=== PATIENT | female | born 1970 | race Caucasian/White ===

== ENCOUNTER 2018-06-05 20:54 | Emergency (ER) | payer BC, SELFPAY ==
[~2018-06-05] VITALS: Ht 162.6 cm; Wt 75.0 kg
[2018-06-05 20:55] VITALS: BP 169/82
== END 2018-06-05 21:00 | disposition left against medical advice (07) ==
LOC: M ED 20:54
DX: Z53.29 Procedure and treatment not carried out because of patient's decision for other reasons (principal)

== ENCOUNTER → 2018-06-06 | Outpatient (CLI) | payer BC ==
--- NOTE | 2018-06-07 04:05 | REP ---
Clinical: Acute bronchitis. Technique: PA and lateral. Findings: Mediastinum and cardiac silhouette normal. Lung valenzuela clear. No focal consolidation, effusion, or pneumothorax. Skeletal structures intact. Impression: No focal consolidation. Electronically Signed by Vivek Sullivan MD 06/07/2018 03:56 A
== END ==
LOC: M ADAMS 18:45
PROVIDERS: ATTEND Physician Assistant
DX: J20.9 Acute bronchitis, unspecified (principal)

== ENCOUNTER → 2021-06-03 | Outpatient (CLI) | payer BC | LOC: M WHC 12:35 | PROVIDERS: ATTEND Family Medicine | DX: Z12.31 Encounter for screening mammogram for malignant neoplasm of breast (principal); Z78.0 Asymptomatic menopausal state; Z92.0 Personal history of contraception; R92.1 Mammographic calcification found on diagnostic imaging of breast ==

== ENCOUNTER → 2021-06-03 | Outpatient (CLI) | payer BC | LOC: M WHC 12:09 | PROVIDERS: ATTEND Family Medicine | DX: Z12.31 Encounter for screening mammogram for malignant neoplasm of breast (principal) ==

== ENCOUNTER → 2021-10-13 | Outpatient (CLI) | payer BC | LOC: M WUC 15:51 | PROVIDERS: ATTEND Allergy & Immunology Allergy | DX: R05.9 Cough, unspecified (principal) ==

== ENCOUNTER → 2021-12-26 | Outpatient (CLI) | payer BC | LOC: M RAD 10:49 | PROVIDERS: ATTEND Student in an Organized Health Care Education/Training Program | DX: R91.8 Other nonspecific abnormal finding of lung field (principal); F17.210 Nicotine dependence, cigarettes, uncomplicated ==

== ENCOUNTER → 2022-03-29 | Outpatient (CLI) | payer BC ==
[2022-03-29 15:51] LABS: BASO # 0.1 10^3/uL (0.0-0.2); BASO % 0.7 % (0.0-1.0); EOS # 0.1 10^3/uL (0.0-0.5); EOS % 1.6 % (0.0-3.0); HEMATOCRIT 43.3 % (36.0-47.0); LYMPH # 2.5 10^3/uL (1.5-5.0); LYMPH % 30.3 % (24.0-44.0); MEAN CORPUSCULAR HEMOGLOBIN 31.3 pg (27.0-33.0); MEAN CORPUSCULAR HGB CONC 32.3 g/dl (32.0-36.5); MEAN CORPUSCULAR VOLUME 96.7 fl (80.0-96.0); MONO # 0.5 10^3/uL (0.0-0.8); MONO % 6.6 % (2.0-8.0); NEUTROPHILS # 4.9 10^3/uL (1.5-8.5); NEUTROPHILS % 60.6 % (36.0-66.0); PLATELET COUNT, AUTOMATED 247 10^3/uL (150-450); RED BLOOD COUNT 4.48 10^6/uL (4.00-5.40); WHITE BLOOD COUNT 8.2 10^3/uL (4.0-10.0)
[2022-03-29 16:27] LABS: ERYTHROCYTE SEDIMENTATION RATE 9 mm/hr (0-30)
== END ==
LOC: M PLALAB 13:17
PROVIDERS: ATTEND Orthopaedic Surgery
DX: M25.531 Pain in right wrist (principal)

== ENCOUNTER → 2022-06-08 | Outpatient (CLI) | payer BC | LOC: M WHC 10:04 | PROVIDERS: ATTEND Student in an Organized Health Care Education/Training Program | DX: Z12.31 Encounter for screening mammogram for malignant neoplasm of breast (principal) ==

== ENCOUNTER → 2023-01-23 | Outpatient (CLI) | payer BC | LOC: M RAD 10:37 | PROVIDERS: ATTEND Student in an Organized Health Care Education/Training Program | DX: Z12.2 Encounter for screening for malignant neoplasm of respiratory organs (principal); F17.210 Nicotine dependence, cigarettes, uncomplicated ==

== ENCOUNTER → 2023-03-19 | Outpatient (CLI) | payer BC ==
[~2023-03-19] MED LIST: AMLO1TAB25 PO; ASPI81TAEC PO; ATOR1TAB21 PO; BREO1INH INH; CITA10TA7 PO; DICY-61 PO; FAMO40TA3 PO; LEVOTAB10 PO; OMEP40CA5 PO; SUCR1ORA PO
== END ==
LOC: M SLEEP HO 11:51
PROVIDERS: ATTEND Nurse Practitioner Family
DX: R40.0 Somnolence (principal)

== ENCOUNTER 2023-03-28 12:33 | Observation (INO) | payer BC ==
[~2023-03-28] VITALS: Ht 162.6 cm; Wt 80.1 kg
[2023-03-28] MEDS ORDERED: CITA10TA7 PO (13:05)
[2023-03-28] MEDS ORDERED: FAMO40TA3 PO (13:05)
[2023-03-28] MEDS ORDERED: DICY-61 PO (13:05)
[2023-03-28] MEDS ORDERED: OMEP40CA5 PO (13:05)
[2023-03-28] MEDS ORDERED: SUCR1ORA PO (13:05)
[2023-03-28] MEDS ORDERED: LEVOTAB10 PO (13:05)
[2023-03-28 15:29] LABS: BASO # 0.1 10^3/uL (0.0-0.2); BASO % 1.3 % (0.0-1.0); EOS # 0.1 10^3/uL (0.0-0.5); EOS % 1.9 % (0.0-3.0); HEMATOCRIT 39.5 % (36.0-47.0); HEMOGLOBIN 13.5 g/dl (12.0-15.5); LYMPH # 2.1 10^3/uL (1.5-5.0); LYMPH % 29.8 % (24.0-44.0); MEAN CORPUSCULAR HEMOGLOBIN 31.2 pg (27.0-33.0); MEAN CORPUSCULAR HGB CONC 34.2 g/dl (32.0-36.5); MEAN CORPUSCULAR VOLUME 91.2 fl (80.0-96.0); MONO # 0.6 10^3/uL (0.0-0.8); MONO % 8.7 % (2.0-8.0); NEUTROPHILS % 58.2 % (36.0-66.0); PLATELET COUNT, AUTOMATED 228 10^3/uL (150-450); RED BLOOD COUNT 4.33 10^6/uL (4.00-5.40); WHITE BLOOD COUNT 6.9 10^3/uL (4.0-10.0)
[2023-03-28] MEDS ORDERED: ISOVUE-370 76% 100ML VIAL As Ordered ONE (15:29)
[2023-03-28 15:42] LABS: INR 0.96; PROTHROMBIN TIME 12.5 SECONDS (12.5-14.5)
[2023-03-28 15:43] LABS: PARTIAL THROMBOPLASTIN TIME 27.2 SECONDS (24.8-34.2)
[2023-03-28 15:56] LABS: RSV AMPLIFICATION NEGATIVE (NEGATIVE)
[2023-03-28 16:59] LABS: BLOOD UREA NITROGEN 11 MG/DL (9-23); CALCIUM LEVEL 9.2 MG/DL (8.5-10.1); CARBON DIOXIDE LEVEL 27 MMOL/L (20-31); CHLORIDE LEVEL 104 MMOL/L (98-107); CK-MB VALUE MASS < 1.0 NG/ML (<3.6); CPK CREATINE PHOSPHOKINASE 77 U/L (34-145); GLOMERULAR FILTRATION RATE > 60.0 (>51); GLUCOSE, FASTING 70 MG/DL (60-100); MB/CK RELATIVE INDEX 1.29 (< OR =4); POTASSIUM SERUM 4.1 MMOL/L (3.5-5.1); SODIUM LEVEL 139 MMOL/L (136-145)
[2023-03-28 17:01] LABS: THYROID STIMULATING HORMONE 0.671 uIU/ML (0.55-4.78)
[2023-03-28 17:02] LABS: FREE T4 0.99 NG/DL (0.89-1.76)
[2023-03-28] MEDS ORDERED: MED REC IN PROGRESS XX SCH (18:10)
[2023-03-28] MEDS ORDERED: MOM 30ML SUSPENSION UDC PO PRN (18:30)
[2023-03-28] MEDS ORDERED: ACETAMINOPHEN TAB 650MG DOSE (2X325MG) PO PRN (18:30)
[2023-03-28] MEDS ORDERED: MAALOX 30 ML SUSP *UDC PO PRN (18:30)
[2023-03-28] MEDS ORDERED: BREO1INH INH (18:45)
[2023-03-28] MEDS ORDERED: HOME MED LIST COMPLETE! XX SCH (18:50)
[2023-03-28] MEDS ORDERED: **hydrALAZINE** 10 MG TAB PO ONE (18:50)
[2023-03-28 19:05] LABS: CHOLESTEROL LEVEL 240 MG/DL (<200); CHOLESTEROL RISK RATIO 5.16 (<5); HDL CHOLESTEROL 46.5 MG/DL (>40); LDL CHOLESTEROL 135.7 MG/DL (<100); NON-HDL-C 193.5 MG/DL; TRIGLYCERIDES LEVEL 289 MG/DL (<150)
[2023-03-28] MEDS ORDERED: hydrALAZINE 20MG/ML 1ML VIAL IV ONE (21:00)
[2023-03-28 21:56] VITALS: BP 168/90; TEMP 97.9; O2SAT 99
[2023-03-28] MEDS: FAMOTIDINE 20 MG TAB PO SCH (22:34)
[2023-03-29 05:30] VITALS: BP 142/78; TEMP 98.1; O2SAT 95
[2023-03-29 06:42] LABS: BLOOD UREA NITROGEN 14 MG/DL (9-23); CALCIUM LEVEL 9.1 MG/DL (8.5-10.1); CARBON DIOXIDE LEVEL 24 MMOL/L (20-31); CHLORIDE LEVEL 105 MMOL/L (98-107); CREATININE FOR GFR 0.72 MG/DL (0.55-1.30); GLOMERULAR FILTRATION RATE > 60.0 (>51); GLUCOSE, FASTING 100 MG/DL (60-100); MAGNESIUM LEVEL 2.2 MG/DL (1.8-2.4); POTASSIUM SERUM 3.9 MMOL/L (3.5-5.1); SODIUM LEVEL 139 MMOL/L (136-145)
[2023-03-29] MEDS: FAMOTIDINE 20 MG TAB PO SCH (08:11)
[2023-03-29 08:12] VITALS: BP 141/76
[2023-03-29] MEDS ORDERED: PANTOPRAZOLE 40MG TAB (PROTONIX) PO SCH (09:00)
[2023-03-29] MEDS ORDERED: ATORVASTATIN 20 MG TAB PO SCH (09:00)
[2023-03-29] MEDS ORDERED: ENOXAPARIN 40MG/0.4ML SYRINGE (J1650 PER 10MG) SC SCH (09:00)
[2023-03-29] MEDS ORDERED: CitaloPRAM (CeleXA) 10 MG TABLET PO SCH (09:00)
[2023-03-29] MEDS ORDERED: ASPIRIN 81MG ENTERIC TABLET PO SCH (09:00)
[2023-03-29] MEDS ORDERED: ASPI81TAEC PO (11:30)
[2023-03-29] MEDS ORDERED: AMLO1TAB25 PO (11:30)
[2023-03-29] MEDS ORDERED: ATOR1TAB21 PO (11:30)
== END 2023-03-29 12:08 | disposition home or self-care (01) ==
LOC: M ED 12:33 → M ED INP 12:34 → M MSPAV 21:56
PROVIDERS: ADMIT Student in an Organized Health Care Education/Training Program; ATTEND Internal Medicine
DX: H53.123 Transient visual loss, bilateral (principal); R51.9 Headache, unspecified; R42 Dizziness and giddiness; R11.0 Nausea; H92.01 Otalgia, right ear; I16.0 Hypertensive urgency; E78.5 Hyperlipidemia, unspecified; K21.9 Gastro-esophageal reflux disease without esophagitis; F41.9 Anxiety disorder, unspecified; J30.2 Other seasonal allergic rhinitis; Z87.891 Personal history of nicotine dependence; Z79.899 Other long term (current) drug therapy
CPT/HCPCS: 36415; 70450; 70496; 70498; 70551; 71045; 80047; 80048; 80061; 82550; 82553; 83735; 84439; 84443; 84484; 85025; 85610; 85730; 87631; 93005; 93041; 94760; 96372; 96374; 99285; J0360; J1650; Q9967

== ENCOUNTER → 2023-06-29 | Outpatient (CLI) | payer BC | LOC: M WHC 10:09 | PROVIDERS: ATTEND Student in an Organized Health Care Education/Training Program | DX: Z12.31 Encounter for screening mammogram for malignant neoplasm of breast (principal) ==

== ENCOUNTER → 2023-07-10 | Outpatient (CLI) | payer BC ==
[2023-07-10 16:20] LABS: THYROID STIMULATING HORMONE 0.981 uIU/ML (0.55-4.78)
[2023-07-10 16:21] LABS: VITAMIN B12 LEVEL 493 PG/ML (211-911)
[2023-07-10 16:22] LABS: FOLATE 22.13 NG/ML (>5.4); RHEUMATOID FACTOR QUANT < 3.5 IU/ML (<14)
[2023-07-10 16:23] LABS: TOTAL 25(OH) VITAMIN D 28.2 NG/ML (20.0-100.0)
[2023-07-10 16:34] LABS: HEMOGLOBIN A1c 5.7 % (4.0-6.0)
== END ==
LOC: M PLALAB 13:53
PROVIDERS: ATTEND Psychiatry & Neurology Neurology
DX: G35 Multiple sclerosis (principal); R41.3 Other amnesia

== ENCOUNTER → 2024-04-16 | Outpatient (CLI) | payer BC | LOC: M RAD 09:51 | PROVIDERS: ATTEND Family Medicine | DX: Z87.891 Personal history of nicotine dependence (principal) ==

== ENCOUNTER → 2024-04-22 | Outpatient (REF) | payer BC | LOC: M LAB REF 11:39 | PROVIDERS: ATTEND Internal Medicine Gastroenterology | DX: K21.9 Gastro-esophageal reflux disease without esophagitis (principal); K58.9 Irritable bowel syndrome, unspecified; E55.9 Vitamin D deficiency, unspecified; R14.3 Flatulence; R10.9 Unspecified abdominal pain ==

== ENCOUNTER → 2024-06-26 | Outpatient (CLI) | payer BC ==
[2024-06-26 09:40] LABS: BASO # 0.1 10^3/uL (0.0-0.2); BASO % 1.1 % (0.0-1.0); EOS # 0.1 10^3/uL (0.0-0.5); EOS % 2.7 % (0.0-3.0); HEMATOCRIT 41.8 % (36.0-47.0); HEMOGLOBIN 14.2 g/dl (12.0-15.5); LYMPH # 1.5 10^3/uL (1.5-5.0); LYMPH % 32.5 % (24.0-44.0); MEAN CORPUSCULAR HEMOGLOBIN 31.2 pg (27.0-33.0); MEAN CORPUSCULAR VOLUME 91.9 fl (80.0-96.0); MONO # 0.3 10^3/uL (0.0-0.8); MONO % 6.1 % (2.0-8.0); NEUTROPHILS # 2.6 10^3/uL (1.5-8.5); NEUTROPHILS % 57.4 % (36.0-66.0); PLATELET COUNT, AUTOMATED 226 10^3/uL (150-450); RED BLOOD COUNT 4.55 10^6/uL (4.00-5.40); WHITE BLOOD COUNT 4.5 10^3/uL (4.0-10.0)
[2024-06-26 10:05] LABS: ALBUMIN 4.1 G/DL (3.2-5.2); ALKALINE PHOSPHATASE 72 U/L (35-104); ALT/SGPT 42 U/L (7.0-40); AST/SGOT 15 U/L (<34); BILIRUBIN,TOTAL 0.8 MG/DL (0.3-1.2); BLOOD UREA NITROGEN 13 MG/DL (9-23); CALCIUM LEVEL 9.3 MG/DL (8.5-10.1); CARBON DIOXIDE LEVEL 28 MMOL/L (20-31); CHLORIDE LEVEL 104 MMOL/L (98-107); CHOLESTEROL LEVEL 251 MG/DL (<200); CREATININE FOR GFR 0.62 MG/DL (0.55-1.30); FREE T3 3.8 PG/ML (2.3-4.2); GLOMERULAR FILTRATION RATE > 60.0 (>51); GLUCOSE, FASTING 102 MG/DL (60-100); HDL CHOLESTEROL 52.2 MG/DL (>40); LDL CHOLESTEROL 161.2 MG/DL (<100); NON-HDL-C 198.8 MG/DL; POTASSIUM SERUM 4.3 MMOL/L (3.5-5.1); SODIUM LEVEL 143 MMOL/L (136-145); TOTAL PROTEIN 7.2 G/DL (5.7-8.2); TRIGLYCERIDES LEVEL 188 MG/DL (<150)
[2024-06-26 10:06] LABS: TOTAL 25(OH) VITAMIN D 22.1 NG/ML (20.0-100.0); TOTAL T3 112.7 NG/DL (60.0-181.0)
== END ==
LOC: M LAB 08:40
PROVIDERS: ATTEND Family Medicine
DX: E78.5 Hyperlipidemia, unspecified (principal); E55.9 Vitamin D deficiency, unspecified; F41.9 Anxiety disorder, unspecified; I10 Essential (primary) hypertension; R53.83 Other fatigue

== ENCOUNTER → 2024-12-01 | Outpatient (CLI) | payer BC ==
[2024-12-01 18:42] LABS: BASO # 0.1 10^3/uL (0.0-0.2); BASO % 1.3 % (0.0-1.0); EOS # 0.3 10^3/uL (0.0-0.5); EOS % 4.7 % (0.0-3.0); LYMPH # 2.0 10^3/uL (1.5-5.0); LYMPH % 38.1 % (24.0-44.0); MONO # 0.3 10^3/uL (0.0-0.8); MONO % 6.2 % (2.0-8.0); NEUTROPHILS # 2.7 10^3/uL (1.5-8.5); NEUTROPHILS % 49.5 % (36.0-66.0); PLATELET COUNT, AUTOMATED 241 10^3/uL (150-450)
== END ==
LOC: M PLALAB 14:38
PROVIDERS: ATTEND Nurse Practitioner Family
DX: R05.9 Cough, unspecified (principal)